=== PATIENT | male | born 1960 | race Caucasian/White ===

== ENCOUNTER 2024-05-13 17:23 | Emergency (ER) | payer MEDICAID, MEDICARE ==
[2024-05-13 17:43] VITALS: TEMP 97.1
[2024-05-13 19:33] VITALS: BP 128/74; O2SAT 94
[2024-05-14] MEDS ORDERED: JANU25TA PO (08:50)
[2024-05-14] MEDS ORDERED: METF-817 PO (08:50)
[2024-05-14] MEDS ORDERED: CEPH250T PO (08:50)
[2024-05-14] MEDS ORDERED: ASPI81CH33 PO (08:50)
[2024-05-14] MEDS ORDERED: JARD1TAB3 PO (08:50)
[2024-05-14] MEDS ORDERED: ATOR40TA75 PO (08:50)
[2024-05-14] MEDS ORDERED: LISI20TA33 PO (08:50)
== END 2024-05-13 20:07 | disposition home or self-care (01) ==
LOC: M ED 17:23 → EDBD 17:23 → M ED 20:07
DX: Z60.9 Problem related to social environment, unspecified (principal)

== ENCOUNTER 2024-05-14 07:15 | Emergency (ER) | payer MEDICARE ==
[2024-05-14] MEDS ORDERED: ATOR40TA75 PO (08:50)
[2024-05-14] MEDS ORDERED: JARD1TAB3 PO (08:50)
[2024-05-14] MEDS ORDERED: ASPI81CH33 PO (08:50)
[2024-05-14] MEDS ORDERED: LISI20TA33 PO (08:50)
[2024-05-14] MEDS ORDERED: JANU25TA PO (08:50)
[2024-05-14] MEDS ORDERED: METF-817 PO (08:50)
[2024-05-14] MEDS ORDERED: CEPH250T PO (08:50)
[2024-05-14 08:58] LABS: HEMATOCRIT 45.3 % (42.0-52.0); HEMOGLOBIN 14.8 g/dl (13.5-17.5); MEAN CORPUSCULAR HEMOGLOBIN 31.4 pg (27.0-33.0); MEAN CORPUSCULAR HGB CONC 32.7 g/dl (32.0-36.5); MEAN CORPUSCULAR VOLUME 96.2 fl (80.0-96.0); PLATELET COUNT, AUTOMATED 375 10^3/uL (150-450); RED BLOOD COUNT 4.71 10^6/uL (4.30-6.10); WHITE BLOOD COUNT 13.4 10^3/uL (4.0-10.0)
[2024-05-14 09:24] LABS: ETHYL ALCOHOL (ETHANOL) < 0.003 % (0.000-0.010)
[2024-05-14 09:26] LABS: ALBUMIN 3.3 G/DL (3.2-5.2); ALKALINE PHOSPHATASE 93 U/L (46-116); ALT/SGPT 24 U/L (7.0-40); AST/SGOT 16 U/L (<34); BILIRUBIN,DIRECT 0.2 MG/DL (<0.4); BILIRUBIN,TOTAL 0.6 MG/DL (0.3-1.2); BLOOD UREA NITROGEN 23 MG/DL (9-23); CALCIUM LEVEL 9.5 MG/DL (8.3-10.6); CARBON DIOXIDE LEVEL 26 MMOL/L (20-31); CHLORIDE LEVEL 106 MMOL/L (98-107); CREATININE FOR GFR 1.22 MG/DL (0.70-1.30); GLOMERULAR FILTRATION RATE > 60.0 (>49); GLUCOSE, FASTING 144 MG/DL (74-106); POTASSIUM SERUM 4.8 MMOL/L (3.5-5.1); SALICYLATE LEVEL < 3.0 MG/DL (<30); SODIUM LEVEL 137 MMOL/L (136-145); TOTAL PROTEIN 6.3 G/DL (5.7-8.2)
[2024-05-14 09:28] LABS: THYROID STIMULATING HORMONE 0.849 uIU/ML (0.55-4.78)
[2024-05-14 09:35] LABS: AMPHETAMINES LEVEL URINE NEGATIVE (NEGATIVE); BARBITURATES URINE NEGATIVE (NEGATIVE); BENZODIAZEPINES URINE NEGATIVE (NEGATIVE); CANNABINOIDS URINE NEGATIVE (NEGATIVE); COCAINE METABOLITE URINE NEGATIVE (NEGATIVE); METHADONE URINE NEGATIVE (NEGATIVE); OPIATES URINE NEGATIVE (NEGATIVE); PHENCYCLIDINE URINE NEGATIVE (NEGATIVE)
[2024-05-14 11:47] VITALS: BP 142/89; TEMP 97.8; O2SAT 99
== END 2024-05-14 12:03 | disposition home or self-care (01) ==
LOC: M ED 07:15
DX: F43.0 Acute stress reaction (principal); E66.9 Obesity, unspecified; E11.9 Type 2 diabetes mellitus without complications

== ENCOUNTER 2024-05-16 08:42 | Inpatient (IN) | payer MEDICARE ==
[~2024-05-16] VITALS: Ht 185.4 cm; Wt 159.0 kg
[~2024-05-16 08:42] MED LIST: ASPI81CH33 PO; ATOR40TA75 PO; CEPH250T PO; JANU25TA PO; JARD1TAB3 PO; LISI20TA33 PO; METF-817 PO
[2024-05-16 09:40] LABS: HEMATOCRIT 43.3 % (42.0-52.0); HEMOGLOBIN 14.3 g/dl (13.5-17.5); MEAN CORPUSCULAR HEMOGLOBIN 31.4 pg (27.0-33.0); MEAN CORPUSCULAR VOLUME 95.2 fl (80.0-96.0); PLATELET COUNT, AUTOMATED 351 10^3/uL (150-450); RED BLOOD COUNT 4.55 10^6/uL (4.30-6.10); WHITE BLOOD COUNT 10.5 10^3/uL (4.0-10.0)
[2024-05-16 10:02] LABS: ETHYL ALCOHOL (ETHANOL) < 0.003 % (0.000-0.010)
[2024-05-16 10:03] LABS: SALICYLATE LEVEL < 3.0 MG/DL (<30)
[2024-05-16 10:06] LABS: ALKALINE PHOSPHATASE 92 U/L (46-116); ALT/SGPT 19 U/L (7.0-40); AST/SGOT 12 U/L (<34); BILIRUBIN,DIRECT 0.1 MG/DL (<0.4); BILIRUBIN,TOTAL 0.4 MG/DL (0.3-1.2); BLOOD UREA NITROGEN 33 MG/DL (9-23); CALCIUM LEVEL 8.8 MG/DL (8.3-10.6); CARBON DIOXIDE LEVEL 24 MMOL/L (20-31); CHLORIDE LEVEL 108 MMOL/L (98-107); CREATININE FOR GFR 1.25 MG/DL (0.70-1.30); GLOMERULAR FILTRATION RATE > 60.0 (>49); GLUCOSE, FASTING 250 MG/DL (74-106); POTASSIUM SERUM 4.4 MMOL/L (3.5-5.1); SODIUM LEVEL 137 MMOL/L (136-145); THYROID STIMULATING HORMONE 0.546 uIU/ML (0.55-4.78); TOTAL PROTEIN 5.8 G/DL (5.7-8.2)
[2024-05-16] MEDS ORDERED: METF-723 PO (11:50)
[2024-05-16] MEDS ORDERED: CLOP75TA99 PO (11:50)
[2024-05-16] MEDS ORDERED: QUET100T2 PO (11:50)
[2024-05-16] MEDS ORDERED: GABA-1171 PO (11:50)
[2024-05-16] MEDS ORDERED: NIFE-3 PO (11:50)
[2024-05-16] MEDS ORDERED: CARV3.12 PO (11:50)
[2024-05-16] MEDS ORDERED: DIVA250T67 PO (11:50)
[2024-05-16] MEDS ORDERED: LANTINJ4 SC (11:52)
[2024-05-16] MEDS ORDERED: HUMA100I5 SC (11:52)
[2024-05-16] MEDS ORDERED: HOME MED LIST COMPLETE! XX SCH (11:55)
[2024-05-16 12:09] LABS: BARBITURATES URINE NEGATIVE (NEGATIVE); COCAINE METABOLITE URINE NEGATIVE (NEGATIVE)
[2024-05-16 12:10] LABS: AMPHETAMINES LEVEL URINE NEGATIVE (NEGATIVE); BENZODIAZEPINES URINE NEGATIVE (NEGATIVE); METHADONE URINE NEGATIVE (NEGATIVE); OPIATES URINE NEGATIVE (NEGATIVE); PHENCYCLIDINE URINE NEGATIVE (NEGATIVE)
[2024-05-16 12:20] LABS: CANNABINOIDS URINE POSITIVE (NEGATIVE)
[2024-05-16] MEDS ORDERED: INSULIN LISPRO (NovoLOG) PER UNIT SC SCH (12:40)
[2024-05-16] MEDS: CLOPIDOGREL 75 MG TAB PO SCH (13:21)
[2024-05-16] MEDS: INSULIN LISPRO (NovoLOG) PER UNIT SC SCH ×3 (13:21→20:40)
[2024-05-16] MEDS: GABAPENTIN 100 MG CAP PO SCH (16:00)
[2024-05-16] MEDS: DOCUSATE SODIUM 100MG CAPSULE PO PRN (19:55)
[2024-05-16] MEDS: DIVALPROEX 250MG TAB PO SCH (20:51)
[2024-05-16] MEDS: QUEtiapine FUMARATE 100 MG TAB PO SCH (20:51)
[2024-05-16] MEDS: CARVedilol 3.125 MG TAB PO SCH (20:52)
[2024-05-16] MEDS: LEVEMIR (INSULIN DETEMIR) 1 UNITS/0.01ML SC SCH (20:53)
[2024-05-17] MEDS: NIFEdipine 30MG XL TAB PO SCH (09:25)
[2024-05-17] MEDS: ASPIRIN 325 MG TAB PO SCH (09:26)
[2024-05-17 12:47] LABS: APPEARANCE, URINE CLEAR (CLEAR); BACTERIA, URINE AUTO NEGATIVE (NEGATIVE); BILIRUBIN, URINE AUTO NEGATIVE (NEGATIVE); BLOOD, URINE BLOOD NEGATIVE (NEGATIVE); COLOR, URINE YELLOW (YELLOW); GLUCOSE, URINE (UA) AUTO NEGATIVE (NEGATIVE); KETONE, URINE AUTO NEGATIVE (NEGATIVE); LEUKOCYTE ESTERASE, URINE AUTO NEGATIVE (NEGATIVE); NITRITE, URINE AUTO NEGATIVE (NEGATIVE); PROTEIN, URINE AUTO NEGATIVE (NEGATIVE); RBC, URINE AUTO 1 /HPF (0-3); SPECIFIC GRAVITY URINE AUTO 1.011 (1.002-1.035); SQUAMOUS EPITHELIAL CELL UR AU 0 /HPF (0-6); UROBILINOGEN, URINE AUTO 0.2 mg/dL (0.0-2.0); WBC, URINE AUTO 1 /HPF (0-3)
[2024-05-18] MEDS ORDERED: diphenhydrAMINE 25MG CAP PO PRN (09:25)
[2024-05-18] MEDS ORDERED: MOM 30ML SUSPENSION UDC PO PRN (09:25)
[2024-05-18] MEDS ORDERED: MAALOX 30 ML SUSP *UDC PO PRN (09:25)
[2024-05-18] MEDS ORDERED: IBUPROFEN 400MG TAB PO PRN (09:25)
[2024-05-18 11:16] VITALS: BP 134/63; TEMP 97.4; O2SAT 97
[2024-05-18] MEDS: LEVEMIR (INSULIN DETEMIR) 1 UNITS/0.01ML SC SCH (21:00)
[2024-05-18] MEDS: GABAPENTIN 100 MG CAP PO SCH (21:00)
[2024-05-18 21:22] VITALS: BP 141/80
[2024-05-18] MEDS: DIVALPROEX 250MG TAB PO SCH (21:24)
[2024-05-18] MEDS: QUEtiapine FUMARATE 100 MG TAB PO SCH (21:24)
[2024-05-18] MEDS: CARVedilol 3.125 MG TAB PO SCH (21:24)
[2024-05-19] MEDS: metFORMIN XR 500MG TAB *GLUCOPHAGE XR PO SCH (08:20)
[2024-05-19] MEDS: SITagliptin 50 MG TAB (JANUVIA) PO SCH (08:20)
[2024-05-19] MEDS: CLOPIDOGREL 75 MG TAB PO SCH (08:20)
[2024-05-19] MEDS: ASPIRIN 81MG CHEW TABLET PO SCH (08:20)
[2024-05-19] MEDS: NIFEdipine 30MG XL TAB PO SCH (08:21)
[2024-05-19] MEDS: ATORVASTATIN 20 MG TAB PO SCH (08:21)
[2024-05-19 17:46] VITALS: BP 130/80; TEMP 96.7; O2SAT 100
[2024-05-19] MEDS: RIVAROXABAN 10MG TAB (XARELTO) PO SCH (17:51)
[2024-05-20] MEDS ORDERED: ENOXAPARIN 40MG/0.4ML SYRINGE (J1650 PER 10MG) SC SCH (09:00)
[2024-05-20] MEDS: PILL CUTTER 1 EACH XX PRN (09:48)
[2024-05-20 16:45] VITALS: BP 122/60; TEMP 97.2; O2SAT 98
[2024-05-20] MEDS: NORCO, ANEXSIA 5/325MG TABLET (HYDROcodone/ACETAMINOPHEN) PO PRN (22:20)
[2024-05-21 15:48] VITALS: BP 123/58; TEMP 97.8; O2SAT 98
[2024-05-21] MEDS: NYSTATIN 100,000 UNITS/GM TOPICAL PWD 15GM TOP PRN (16:11)
[2024-05-22 16:43] VITALS: TEMP 98.8; O2SAT 97
[2024-05-23 15:35] VITALS: BP 148/80; TEMP 97.7; O2SAT 99
[2024-05-23] MEDS: ACETAMINOPHEN TAB 650MG DOSE (2X325MG) PO PRN (19:22)
[2024-05-24 21:05] VITALS: BP 159/84
[2024-05-24] MEDS: traZODone 50 MG TAB PO PRN (21:10)
[2024-05-24] MEDS: GABAPENTIN 100 MG CAP PO SCH (21:11)
[2024-05-25 08:55] VITALS: BP 140/78
[2024-05-25] MEDS ORDERED: XARE10TA PO (09:19)
[2024-05-25 12:10] LABS: HEMATOCRIT 44.2 % (42.0-52.0); HEMOGLOBIN 14.7 g/dl (13.5-17.5); MEAN CORPUSCULAR HEMOGLOBIN 31.2 pg (27.0-33.0); MEAN CORPUSCULAR HGB CONC 33.3 g/dl (32.0-36.5); MEAN CORPUSCULAR VOLUME 93.8 fl (80.0-96.0); PLATELET COUNT, AUTOMATED 329 10^3/uL (150-450); RED BLOOD COUNT 4.71 10^6/uL (4.30-6.10); WHITE BLOOD COUNT 7.8 10^3/uL (4.0-10.0)
== END 2024-05-25 13:37 | disposition home or self-care (01) | DRG 881 ==
LOC: EDBD 08:42 → M ED 08:42 → M ED INP 05-18 09:22 → M PSY 05-18 10:14
PROVIDERS: ADMIT Psychiatry & Neurology Child & Adolescent Psychiatry; ATTEND Psychiatry & Neurology Child & Adolescent Psychiatry
DX: F34.1 Dysthymic disorder (principal); R45.851 Suicidal ideations; Z59.00 Homelessness unspecified; F60.9 Personality disorder, unspecified; E11.42 Type 2 diabetes mellitus with diabetic polyneuropathy; E11.51 Type 2 diabetes mellitus with diabetic peripheral angiopathy without gangrene; I10 Essential (primary) hypertension; I73.9 Peripheral vascular disease, unspecified; E78.00 Pure hypercholesterolemia, unspecified; Z89.512 Acquired absence of left leg below knee; Z99.3 Dependence on wheelchair; Z79.84 Long term (current) use of oral hypoglycemic drugs; Z79.82 Long term (current) use of aspirin; Z79.4 Long term (current) use of insulin; Z79.899 Other long term (current) drug therapy

== ENCOUNTER 2024-05-26 16:18 | Emergency (ER) | payer MEDICARE ==
[~2024-05-26 16:18] MED LIST changes: +CARV3.12 PO; +CLOP75TA99 PO; +DIVA250T67 PO; +GABA-1171 PO; +HUMA100I5 SC; +LANTINJ4 SC; +METF-723 PO; +NIFE-3 PO; +QUET100T2 PO; +XARE10TA PO
[2024-05-26] MEDS ORDERED: HOME MED LIST COMPLETE! XX SCH (17:40)
[2024-05-26 17:55] LABS: HEMATOCRIT 43.6 % (42.0-52.0); HEMOGLOBIN 14.3 g/dl (13.5-17.5); MEAN CORPUSCULAR HGB CONC 32.8 g/dl (32.0-36.5); MEAN CORPUSCULAR VOLUME 94.4 fl (80.0-96.0); PLATELET COUNT, AUTOMATED 307 10^3/uL (150-450); RED BLOOD COUNT 4.62 10^6/uL (4.30-6.10); WHITE BLOOD COUNT 10.3 10^3/uL (4.0-10.0)
[2024-05-26 18:17] LABS: ETHYL ALCOHOL (ETHANOL) < 0.003 % (0.000-0.010)
[2024-05-26 18:19] LABS: ALBUMIN 3.3 G/DL (3.2-5.2); ALKALINE PHOSPHATASE 86 U/L (46-116); ALT/SGPT 22 U/L (7.0-40); AST/SGOT 15 U/L (<34); BILIRUBIN,DIRECT 0.1 MG/DL (<0.4); BILIRUBIN,TOTAL 0.3 MG/DL (0.3-1.2); BLOOD UREA NITROGEN 41 MG/DL (9-23); CALCIUM LEVEL 9.3 MG/DL (8.3-10.6); CARBON DIOXIDE LEVEL 24 MMOL/L (20-31); CHLORIDE LEVEL 110 MMOL/L (98-107); CREATININE FOR GFR 1.46 MG/DL (0.70-1.30); GLOMERULAR FILTRATION RATE 51.7 (>49); GLUCOSE, FASTING 156 MG/DL (74-106); POTASSIUM SERUM 4.3 MMOL/L (3.5-5.1); SALICYLATE LEVEL < 3.0 MG/DL (<30); SODIUM LEVEL 140 MMOL/L (136-145); TOTAL PROTEIN 6.2 G/DL (5.7-8.2)
[2024-05-26] MEDS ORDERED: MOM 30ML SUSPENSION UDC PO PRN (19:40)
[2024-05-26] MEDS ORDERED: ACETAMINOPHEN TAB 650MG DOSE (2X325MG) PO PRN (19:40)
[2024-05-26] MEDS ORDERED: GLUCAGON INJ 1MG VIAL SC PRN (19:45)
[2024-05-26] MEDS ORDERED: DEXTROSE 50% 50ML SYRINGE IV PRN (19:45)
[2024-05-26] MEDS ORDERED: GLUCOSE 4 GM CHEW PO PRN (19:45)
[2024-05-26] MEDS: RIVAROXABAN 10MG TAB (XARELTO) PO ONE (20:19)
[2024-05-26] MEDS: DOCUSATE SODIUM 100MG CAPSULE PO SCH (21:00)
[2024-05-26] MEDS: INSULIN LISPRO (NovoLOG) PER UNIT SC SCH (23:00)
[2024-05-27] MEDS: INSULIN LISPRO (NovoLOG) PER UNIT SC SCH (07:30)
[2024-05-27] MEDS ORDERED: PILL CUTTER 1 EACH XX ONE (07:40)
[2024-05-27] MEDS ORDERED: ENTER DRUG NAME HERE (PATIENT'S OWN MED) PO SCH (09:00)
[2024-05-27] MEDS: metFORMIN XR 500MG TAB *GLUCOPHAGE XR PO SCH (10:24)
[2024-05-27] MEDS: SITagliptin 50 MG TAB (JANUVIA) PO SCH (10:24)
[2024-05-27] MEDS: ATORVASTATIN 20 MG TAB PO SCH (10:35)
[2024-05-27] MEDS: ASPIRIN 81MG ENTERIC TABLET PO SCH (10:37)
[2024-05-27 10:53] VITALS: BP 140/70; TEMP 98; O2SAT 99
[2024-05-27] MEDS ORDERED: RIVAROXABAN 10MG TAB (XARELTO) PO SCH (18:00)
== END 2024-05-27 12:45 | disposition home or self-care (01) ==
LOC: M ED 16:18 → EDBD 16:18 → M ED 05-27 12:45
DX: I10 Essential (primary) hypertension (principal); E11.9 Type 2 diabetes mellitus without complications; F43.0 Acute stress reaction; Z79.82 Long term (current) use of aspirin; Z79.84 Long term (current) use of oral hypoglycemic drugs; Z79.899 Other long term (current) drug therapy

== ENCOUNTER 2024-05-27 19:24 | Emergency (ER) | payer MEDICARE ==
[~2024-05-27] VITALS: Ht 190.5 cm; Wt 113.6 kg
[2024-05-27] MEDS ORDERED: HOME MED LIST COMPLETE! XX SCH (19:50)
[2024-05-27 20:18] LABS: HEMATOCRIT 43.3 % (42.0-52.0); HEMOGLOBIN 14.3 g/dl (13.5-17.5); MEAN CORPUSCULAR HEMOGLOBIN 31.4 pg (27.0-33.0); MEAN CORPUSCULAR VOLUME 95.2 fl (80.0-96.0); PLATELET COUNT, AUTOMATED 289 10^3/uL (150-450); RED BLOOD COUNT 4.55 10^6/uL (4.30-6.10); WHITE BLOOD COUNT 9.4 10^3/uL (4.0-10.0)
[2024-05-27 20:50] LABS: ETHYL ALCOHOL (ETHANOL) 0.005 % (0.000-0.010)
[2024-05-27 20:52] LABS: SALICYLATE LEVEL < 3.0 MG/DL (<30)
[2024-05-27 20:54] LABS: THYROID STIMULATING HORMONE 1.104 uIU/ML (0.55-4.78)
[2024-05-27 20:55] LABS: ALBUMIN 3.2 G/DL (3.2-5.2); ALKALINE PHOSPHATASE 85 U/L (46-116); ALT/SGPT 22 U/L (7.0-40); AST/SGOT 16 U/L (<34); BILIRUBIN,DIRECT 0.2 MG/DL (<0.4); BILIRUBIN,TOTAL 0.6 MG/DL (0.3-1.2); BLOOD UREA NITROGEN 35 MG/DL (9-23); CALCIUM LEVEL 9.5 MG/DL (8.3-10.6); CARBON DIOXIDE LEVEL 22 MMOL/L (20-31); CHLORIDE LEVEL 111 MMOL/L (98-107); CREATININE FOR GFR 1.35 MG/DL (0.70-1.30); GLOMERULAR FILTRATION RATE 56.6 (>49); GLUCOSE, FASTING 211 MG/DL (74-106); POTASSIUM SERUM 4.2 MMOL/L (3.5-5.1); SODIUM LEVEL 140 MMOL/L (136-145); TOTAL PROTEIN 6.2 G/DL (5.7-8.2)
[2024-05-28 00:29] LABS: AMPHETAMINES LEVEL URINE NEGATIVE (NEGATIVE)
[2024-05-28 00:30] LABS: BARBITURATES URINE NEGATIVE (NEGATIVE); BENZODIAZEPINES URINE NEGATIVE (NEGATIVE); CANNABINOIDS URINE NEGATIVE (NEGATIVE); COCAINE METABOLITE URINE NEGATIVE (NEGATIVE); METHADONE URINE NEGATIVE (NEGATIVE); OPIATES URINE NEGATIVE (NEGATIVE); PHENCYCLIDINE URINE NEGATIVE (NEGATIVE)
[2024-05-28 03:14] VITALS: BP 158/75; TEMP 97.2; O2SAT 97
== END 2024-05-28 03:44 | disposition home or self-care (01) ==
LOC: M ED 19:24
DX: Z59.00 Homelessness unspecified (principal); Z76.5 Malingerer [conscious simulation]; F32.A Depression, unspecified; E11.51 Type 2 diabetes mellitus with diabetic peripheral angiopathy without gangrene; I10 Essential (primary) hypertension; F43.0 Acute stress reaction; Z89.449 Acquired absence of unspecified ankle; Z79.82 Long term (current) use of aspirin; Z79.84 Long term (current) use of oral hypoglycemic drugs; Z79.01 Long term (current) use of anticoagulants; Z79.899 Other long term (current) drug therapy

== ENCOUNTER 2024-06-08 03:33 | Emergency (ER) | payer MEDICARE, MEDICAID ==
[~2024-06-08] VITALS: Ht 188 cm; Wt 103.2 kg
[2024-06-08 09:15] VITALS: BP 135/78; TEMP 97.2; O2SAT 100
[2024-06-08] MEDS ORDERED: LISI20TA33 PO (09:29)
[2024-06-08] MEDS ORDERED: METF-723 PO (09:29)
[2024-06-08] MEDS ORDERED: XARE10TA PO (09:29)
[2024-06-08] MEDS ORDERED: ASPI81CH33 PO (09:29)
[2024-06-08] MEDS ORDERED: JANU25TA PO (09:29)
[2024-06-08] MEDS ORDERED: ATOR40TA75 PO (09:29)
[2024-06-08] MEDS ORDERED: JARD1TAB3 PO (09:29)
== END 2024-06-08 09:31 | disposition home or self-care (01) ==
LOC: M ED 03:33
DX: Z60.9 Problem related to social environment, unspecified (principal); F17.200 Nicotine dependence, unspecified, uncomplicated

== ENCOUNTER 2024-06-08 19:26 | Emergency (ER) | payer MEDICARE, MEDICAID ==
[~2024-06-08] VITALS: Ht 185.4 cm; Wt 122.7 kg
[2024-06-08 21:13] VITALS: BP 123/76; TEMP 97.6; O2SAT 95
== END 2024-06-09 05:50 | disposition home or self-care (01) ==
LOC: M ED 19:26
DX: Z59.00 Homelessness unspecified (principal); I10 Essential (primary) hypertension

== ENCOUNTER → 2024-06-09 | Emergency (ER) | payer MEDICARE, MEDICAID ==
[~2024-06-09] VITALS: Ht 188 cm; Wt 103.2 kg
[~2024-06-09] MED LIST changes: +AMLO1TAB24 PO; +ASPI81CH8 PO; +NYST-13 TOP
[2024-06-09 20:05] VITALS: BP 104/57; TEMP 97; O2SAT 96
== END | disposition left against medical advice (07) ==
LOC: M ED 19:56
DX: Z53.21 Procedure and treatment not carried out due to patient leaving prior to being seen by health care provider (principal)

== ENCOUNTER 2024-06-10 18:47 | Emergency (ER) | payer MEDICARE, MEDICAID ==
[~2024-06-10] VITALS: Ht 185.4 cm; Wt 122.4 kg
[~2024-06-10 18:47] MED LIST changes: -AMLO1TAB24 PO; -ASPI81CH8 PO; -NYST-13 TOP
[2024-06-11 05:51] VITALS: BP 142/70; TEMP 96.9; O2SAT 95
[2024-06-11] MEDS ORDERED: HOME MED LIST COMPLETE! XX SCH (07:45)
== END 2024-06-11 12:43 | disposition home or self-care (01) ==
LOC: EDBD 18:47 → M ED 18:47
DX: F32.A Depression, unspecified (principal); E78.5 Hyperlipidemia, unspecified; E11.9 Type 2 diabetes mellitus without complications; I10 Essential (primary) hypertension

== ENCOUNTER 2024-06-11 16:18 | Observation (INO) | payer MEDICARE, MEDICAID ==
[~2024-06-11] VITALS: Ht 185.4 cm; Wt 116.1 kg
[2024-06-11] MEDS ORDERED: HOME MED LIST COMPLETE! XX SCH (16:55)
[2024-06-11 17:25] LABS: HEMATOCRIT 44.5 % (42.0-52.0); HEMOGLOBIN 14.8 g/dl (13.5-17.5); MEAN CORPUSCULAR HEMOGLOBIN 31.8 pg (27.0-33.0); MEAN CORPUSCULAR HGB CONC 33.3 g/dl (32.0-36.5); MEAN CORPUSCULAR VOLUME 95.5 fl (80.0-96.0); PLATELET COUNT, AUTOMATED 323 10^3/uL (150-450); RED BLOOD COUNT 4.66 10^6/uL (4.30-6.10); WHITE BLOOD COUNT 8.7 10^3/uL (4.0-10.0)
[2024-06-11 17:45] LABS: ETHYL ALCOHOL (ETHANOL) < 0.003 % (0.000-0.010)
[2024-06-11 17:47] LABS: ALBUMIN 3.4 G/DL (3.2-5.2); ALKALINE PHOSPHATASE 98 U/L (46-116); ALT/SGPT 20 U/L (7.0-40); AST/SGOT 19 U/L (<34); BILIRUBIN,DIRECT 0.3 MG/DL (<0.4); BILIRUBIN,TOTAL 0.8 MG/DL (0.3-1.2); BLOOD UREA NITROGEN 40 MG/DL (9-23); CALCIUM LEVEL 9.5 MG/DL (8.3-10.6); CARBON DIOXIDE LEVEL 22 MMOL/L (20-31); CHLORIDE LEVEL 107 MMOL/L (98-107); CREATININE FOR GFR 1.63 MG/DL (0.70-1.30); GLOMERULAR FILTRATION RATE 45.6 (>49); GLUCOSE, FASTING 116 MG/DL (74-106); POTASSIUM SERUM 4.7 MMOL/L (3.5-5.1); SALICYLATE LEVEL < 3.0 MG/DL (<30); SODIUM LEVEL 135 MMOL/L (136-145); TOTAL PROTEIN 6.6 G/DL (5.7-8.2)
[2024-06-11 17:49] LABS: THYROID STIMULATING HORMONE 0.608 uIU/ML (0.55-4.78)
[2024-06-11 18:43] LABS: AMPHETAMINES LEVEL URINE NEGATIVE (NEGATIVE); BARBITURATES URINE NEGATIVE (NEGATIVE); BENZODIAZEPINES URINE NEGATIVE (NEGATIVE); CANNABINOIDS URINE NEGATIVE (NEGATIVE); COCAINE METABOLITE URINE NEGATIVE (NEGATIVE); METHADONE URINE NEGATIVE (NEGATIVE); OPIATES URINE NEGATIVE (NEGATIVE); PHENCYCLIDINE URINE NEGATIVE (NEGATIVE)
[2024-06-11] MEDS: NS 1,000 ML IV ONE (19:17)
[2024-06-11 21:45] LABS: CALCIUM LEVEL 9.3 MG/DL (8.3-10.6); CREATININE FOR GFR 1.75 MG/DL (0.70-1.30); POTASSIUM SERUM 4.2 MMOL/L (3.5-5.1)
[2024-06-11] MEDS: NS 1,000 ML IV SCH (22:43)
[2024-06-11] MEDS ORDERED: MOM 30ML SUSPENSION UDC PO PRN (23:45)
[2024-06-11] MEDS ORDERED: ACETAMINOPHEN TAB 650MG DOSE (2X325MG) PO PRN (23:45)
[2024-06-12 02:20] VITALS: BP 156/79; TEMP 97.5; O2SAT 99
[2024-06-12 03:54] VITALS: BP 152/78; TEMP 97.5; O2SAT 98
[2024-06-12] MEDS ORDERED: NS 1,000 ML IV SCH (04:05)
[2024-06-12] MEDS: HEPARIN SOD (PORCINE) 5000UNITS/ML 1ML VIAL/SYRINGE SC SCH (06:00)
[2024-06-12] MEDS: NS 1,000 ML IV SCH ×2 (06:10→10:43)
[2024-06-12] MEDS ORDERED: DEXTROSE 50% 50ML SYRINGE IV PRN (07:10)
[2024-06-12] MEDS ORDERED: GLUCAGON INJ 1MG VIAL SC PRN (07:10)
[2024-06-12] MEDS ORDERED: GLUCOSE 4 GM CHEW PO PRN (07:10)
[2024-06-12 07:53] LABS: CREATININE FOR GFR 1.68 MG/DL (0.70-1.30); POTASSIUM SERUM 4.3 MMOL/L (3.5-5.1)
[2024-06-12] MEDS: DOCUSATE SODIUM 100MG CAPSULE PO SCH (08:02)
[2024-06-12] MEDS: ATORVASTATIN 20 MG TAB PO SCH (08:15)
[2024-06-12] MEDS: ASPIRIN 81MG CHEW TABLET PO SCH (08:15)
[2024-06-12] MEDS: INSULIN LISPRO (NovoLOG) PER UNIT SC SCH ×2 (08:16→20:44)
[2024-06-12] MEDS ORDERED: ASPIRIN 81MG CHEW TABLET FT SCH (09:00)
[2024-06-12 12:08] VITALS: BP 128/85
[2024-06-12] MEDS: amLODIPine 5 MG TAB PO ONE (12:08)
[2024-06-12 12:09] VITALS: BP 128/85; TEMP 97.9; O2SAT 97
[2024-06-12] MEDS: NYSTATIN 100,000 UNITS/GM TOPICAL PWD 15GM TOP PRN (13:53)
[2024-06-12] MEDS: LOPERAMIDE 2 MG CAPLET PO PRN (13:53)
[2024-06-12 19:52] VITALS: BP 129/76; TEMP 97.7; O2SAT 96
[2024-06-13 04:08] VITALS: BP 135/75; TEMP 97.9; O2SAT 96
[2024-06-13 08:48] LABS: CREATININE FOR GFR 1.53 MG/DL (0.70-1.30); POTASSIUM SERUM 4.5 MMOL/L (3.5-5.1)
[2024-06-13] MEDS: amLODIPine 5 MG TAB PO SCH (09:00)
[2024-06-13] MEDS ORDERED: AMLO1TAB24 PO (10:05)
[2024-06-13] MEDS ORDERED: ASPI81CH8 PO (10:05)
== END 2024-06-13 13:50 | disposition home or self-care (01) ==
LOC: M ED 16:18 → EDBD 16:18 → M ED INP 16:19 → M MS5PR 06-12 02:40
PROVIDERS: ADMIT Student in an Organized Health Care Education/Training Program; ATTEND Internal Medicine
DX: R45.851 Suicidal ideations (principal); N17.9 Acute kidney failure, unspecified; N18.30 Chronic kidney disease, stage 3 unspecified; R94.4 Abnormal results of kidney function studies; Z59.00 Homelessness unspecified; Z89.512 Acquired absence of left leg below knee; Z99.3 Dependence on wheelchair; E11.43 Type 2 diabetes mellitus with diabetic autonomic (poly)neuropathy; I12.9 Hypertensive chronic kidney disease with stage 1 through stage 4 chronic kidney disease, or unspecified chronic kidney disease; E11.22 Type 2 diabetes mellitus with diabetic chronic kidney disease; E78.5 Hyperlipidemia, unspecified; F39 Unspecified mood [affective] disorder; R19.7 Diarrhea, unspecified; L30.4 Erythema intertrigo; Z91.141 Patient's other noncompliance with medication regimen due to financial hardship; Z79.899 Other long term (current) drug therapy; Z79.82 Long term (current) use of aspirin; Z79.84 Long term (current) use of oral hypoglycemic drugs; Z79.01 Long term (current) use of anticoagulants
CPT/HCPCS: 36415; 80048; 80076; 80143; 80307; 81001; 82077; 84443; 85027; 87507; 96360; 96361; 99285; G0378; J1815

== ENCOUNTER 2024-06-14 00:34 | Emergency (ER) | payer MEDICARE, MEDICAID ==
[~2024-06-14 00:34] MED LIST changes: +AMLO1TAB24 PO; +ASPI81CH8 PO
[2024-06-14 06:29] VITALS: BP 135/90; TEMP 97.2; O2SAT 100
== END 2024-06-14 09:00 | disposition home or self-care (01) ==
LOC: M ED 00:34
DX: Z59.00 Homelessness unspecified (principal); F32.A Depression, unspecified

== ENCOUNTER 2024-06-17 04:13 | Emergency (ER) | payer MEDICARE, MEDICAID ==
[~2024-06-17] VITALS: Ht 188 cm; Wt 103.2 kg
[2024-06-17 08:02] VITALS: BP 147/91; TEMP 96.7; O2SAT 98
[2024-06-17] MEDS ORDERED: NYST-13 TOP (08:07)
[2024-06-17] MEDS: NYSTATIN CREAM 15GM EXT SCH (08:08)
== END 2024-06-17 08:31 | disposition left against medical advice (07) ==
LOC: M ED 04:13
DX: R21 Rash and other nonspecific skin eruption (principal); Z53.9 Procedure and treatment not carried out, unspecified reason; E11.9 Type 2 diabetes mellitus without complications; I10 Essential (primary) hypertension; Z79.82 Long term (current) use of aspirin; Z79.899 Other long term (current) drug therapy

== ENCOUNTER 2024-06-23 04:49 | Emergency (ER) | payer MEDICARE, MEDICAID ==
[~2024-06-23] VITALS: Ht 188 cm; Wt 122.7 kg
[~2024-06-23 04:49] MED LIST changes: +NYST-13 TOP
[2024-06-23] MEDS ORDERED: NYST1POW9 TOP (04:56)
[2024-06-23] MEDS ORDERED: FLUC150T9 PO (07:04)
[2024-06-23 07:09] VITALS: BP 135/69; TEMP 96.6; O2SAT 97
== END 2024-06-23 08:33 | disposition home or self-care (01) ==
LOC: M ED 04:49
DX: B35.9 Dermatophytosis, unspecified (principal)

== ENCOUNTER 2024-07-02 12:22 | Emergency (ER) | payer MEDICARE, MEDICAID ==
[~2024-07-02] VITALS: Ht 188 cm; Wt 122.7 kg
[~2024-07-02 12:22] MED LIST changes: +FLUC150T9 PO; +NYST1POW9 TOP
[2024-07-02 12:30] VITALS: BP 118/58; TEMP 97.8; O2SAT 93
[2024-07-02] MEDS ORDERED: CEPH500C PO (13:31)
== END 2024-07-02 13:55 | disposition home or self-care (01) ==
LOC: M ED 12:22
DX: L03.115 Cellulitis of right lower limb (principal); E11.9 Type 2 diabetes mellitus without complications; Z79.82 Long term (current) use of aspirin; Z79.2 Long term (current) use of antibiotics; Z79.899 Other long term (current) drug therapy

== ENCOUNTER 2024-07-04 19:28 | Emergency (ER) | payer MEDICARE, MEDICAID ==
[~2024-07-04] VITALS: Ht 175.3 cm; Wt 81.8 kg
[~2024-07-04 19:28] MED LIST changes: +CEPH500C PO
[2024-07-05] MEDS ORDERED: NYST1POW9 TOP (09:03)
[2024-07-05] MEDS ORDERED: FLUC150T9 PO (09:03)
[2024-07-05 09:15] VITALS: BP 145/75; TEMP 96.5; O2SAT 100
== END 2024-07-05 09:20 | disposition home or self-care (01) ==
LOC: EDBD 19:28 → EDUNIT# 19:28 → M ED 19:28
DX: Z76.0 Encounter for issue of repeat prescription (principal); Z79.1 Long term (current) use of non-steroidal anti-inflammatories (NSAID); Z79.2 Long term (current) use of antibiotics; Z79.899 Other long term (current) drug therapy

== ENCOUNTER 2024-08-22 22:00 | Emergency (ER) | payer MEDICAID, MEDICARE ==
[~2024-08-22] VITALS: Ht 188 cm; Wt 57.7 kg
[~2024-08-22 22:00] MED LIST changes: +METF-1156 PO; -METF-817 PO; +NYST1POW3 TOP; -NYST1POW9 TOP
[2024-08-22 22:11] VITALS: BP 147/70; TEMP 97; O2SAT 96
[2024-08-24] MEDS ORDERED: AMLO1TAB24 PO (23:20)
== END 2024-08-23 01:24 | disposition home or self-care (01) ==
LOC: M ED 22:00
DX: L30.4 Erythema intertrigo (principal); Z59.00 Homelessness unspecified; Z89.612 Acquired absence of left leg above knee

== ENCOUNTER 2024-08-24 15:45 | Observation (INO) | payer MEDICARE ==
[~2024-08-24] VITALS: Ht 188 cm; Wt 113.5 kg
[~2024-08-24 15:45] MED LIST changes: +FLUCONAZOLE 50MG TABLET PO SCH
[2024-08-24 20:41] LABS: VENOUS BASE EXCESS 0.4 (-2.0-2.0); VENOUS HCO3 25.4 MMOL/L (23.0-27.0); VENOUS O2 SATURATION 87.2 % (60.0-80.0); VENOUS PARTIAL PRESSURE CO2 41.9 mmHg (38.0-50.0); VENOUS PARTIAL PRESSURE O2 49.3 mmHg (30.0-50.0); VENOUS STANDARD HCO3 24.6 MMOL/L; VENOUS TOTAL CO2 26.7 MMOL/L (24.0-28.0)
[2024-08-24 20:48] LABS: BASO # 0.1 10^3/uL (0.0-0.2); BASO % 0.7 % (0.0-1.0); EOS # 0.5 10^3/uL (0.0-0.5); EOS % 3.7 % (0.0-3.0); HEMATOCRIT 44.5 % (42.0-52.0); HEMOGLOBIN 14.8 g/dl (13.5-17.5); LYMPH # 2.3 10^3/uL (1.5-5.0); MEAN CORPUSCULAR HEMOGLOBIN 31.6 pg (27.0-33.0); MEAN CORPUSCULAR HGB CONC 33.3 g/dl (32.0-36.5); MEAN CORPUSCULAR VOLUME 94.9 fl (80.0-96.0); MONO # 0.7 10^3/uL (0.0-0.8); NEUTROPHILS % 73.3 % (36.0-66.0); PLATELET COUNT, AUTOMATED 380 10^3/uL (150-450); RED BLOOD COUNT 4.69 10^6/uL (4.30-6.10); WHITE BLOOD COUNT 13.6 10^3/uL (4.0-10.0)
[2024-08-24] MEDS: DOCUSATE SODIUM 100MG CAPSULE PO SCH (21:00)
[2024-08-24] MEDS: LIDOCAINE 2% 5ML JELLY UROJET TOP ONE (21:02)
[2024-08-24 21:11] LABS: ETHYL ALCOHOL (ETHANOL) < 0.003 % (0.000-0.010)
[2024-08-24 21:13] LABS: BLOOD UREA NITROGEN 32 MG/DL (9-23); CALCIUM LEVEL 9.8 MG/DL (8.3-10.6); CARBON DIOXIDE LEVEL 25 MMOL/L (20-31); CHLORIDE LEVEL 111 MMOL/L (98-107); CREATININE FOR GFR 1.24 MG/DL (0.70-1.30); GLOMERULAR FILTRATION RATE > 60.0 (>49); GLUCOSE, FASTING 131 MG/DL (74-106); POTASSIUM SERUM 4.4 MMOL/L (3.5-5.1); SODIUM LEVEL 145 MMOL/L (136-145)
[2024-08-24] MEDS: cefTRIAXone SOD 1 GM in DEXTROSE 5% (D5W) ADV/MINI-BAG 50 ML IV ONE (21:19)
[2024-08-24 21:47] LABS: AMPHETAMINES LEVEL URINE NEGATIVE (NEGATIVE)
[2024-08-24 21:48] LABS: BARBITURATES URINE NEGATIVE (NEGATIVE); BENZODIAZEPINES URINE NEGATIVE (NEGATIVE); COCAINE METABOLITE URINE NEGATIVE (NEGATIVE); METHADONE URINE NEGATIVE (NEGATIVE); OPIATES URINE NEGATIVE (NEGATIVE); PHENCYCLIDINE URINE NEGATIVE (NEGATIVE)
[2024-08-24 21:49] LABS: CANNABINOIDS URINE POSITIVE (NEGATIVE)
[2024-08-24] MEDS ORDERED: AMLO1TAB24 PO (23:20)
[2024-08-24] MEDS ORDERED: HOME MED LIST COMPLETE! XX SCH (23:25)
[2024-08-24] MEDS ORDERED: MAALOX 30 ML SUSP *UDC PO PRN (23:35)
[2024-08-24] MEDS ORDERED: GLUCAGON INJ 1MG VIAL SC PRN (23:35)
[2024-08-24] MEDS ORDERED: KETOROLAC 30 MG/ML 1ML VIAL IV PRN (23:35)
[2024-08-24] MEDS ORDERED: GLUCOSE 4 GM CHEW PO PRN (23:35)
[2024-08-24] MEDS ORDERED: DEXTROSE 50% 50ML SYRINGE IV PRN (23:35)
[2024-08-24] MEDS ORDERED: MOM 30ML SUSPENSION UDC PO PRN (23:35)
[2024-08-25] MEDS: NYSTATIN 100,000 UNITS/GM TOPICAL PWD 15GM TOP SCH (00:51)
[2024-08-25 01:09] LABS: ALBUMIN 2.9 G/DL (3.2-5.2); BILIRUBIN,DIRECT 0.2 MG/DL (<0.4); BILIRUBIN,TOTAL 0.7 MG/DL (0.3-1.2); MAGNESIUM LEVEL 1.8 MG/DL (1.8-2.4); TOTAL PROTEIN 5.8 G/DL (5.7-8.2)
[2024-08-25 01:16] LABS: PROCALCITONIN 0.06 ng/ml
[2024-08-25 01:24] LABS: INR 1.11; PARTIAL THROMBOPLASTIN TIME 28.8 SECONDS (24.8-34.2); PROTHROMBIN TIME 14.6 SECONDS (12.5-14.5)
[2024-08-25 01:37] LABS: HEMOGLOBIN A1c 7.1 % (4.0-6.0)
[2024-08-25 05:47] LABS: HEMATOCRIT 43.9 % (42.0-52.0); HEMOGLOBIN 14.2 g/dl (13.5-17.5); MEAN CORPUSCULAR HEMOGLOBIN 30.8 pg (27.0-33.0); MEAN CORPUSCULAR HGB CONC 32.3 g/dl (32.0-36.5); MEAN CORPUSCULAR VOLUME 95.2 fl (80.0-96.0); PLATELET COUNT, AUTOMATED 317 10^3/uL (150-450); RED BLOOD COUNT 4.61 10^6/uL (4.30-6.10); WHITE BLOOD COUNT 9.4 10^3/uL (4.0-10.0)
[2024-08-25 06:13] LABS: ALKALINE PHOSPHATASE 87 U/L (40-129); ALT/SGPT 17 U/L (7.0-40); AST/SGOT 16 U/L (<34); BILIRUBIN,TOTAL 0.9 MG/DL (0.3-1.2); BLOOD UREA NITROGEN 31 MG/DL (9-23); CALCIUM LEVEL 9.7 MG/DL (8.3-10.6); CARBON DIOXIDE LEVEL 26 MMOL/L (20-31); CHLORIDE LEVEL 110 MMOL/L (98-107); CREATININE FOR GFR 1.22 MG/DL (0.70-1.30); GLOMERULAR FILTRATION RATE > 60.0 (>49); GLUCOSE, FASTING 164 MG/DL (74-106); MAGNESIUM LEVEL 1.8 MG/DL (1.8-2.4); POTASSIUM SERUM 4.4 MMOL/L (3.5-5.1); SODIUM LEVEL 145 MMOL/L (136-145)
[2024-08-25 06:40] VITALS: BP 141/86; TEMP 97.3; O2SAT 97
[2024-08-25 06:45] VITALS: O2SAT 97
[2024-08-25] MEDS: INSULIN LISPRO (NovoLOG) PER UNIT SC SCH ×2 (07:30→21:00)
[2024-08-25] MEDS: ENOXAPARIN 40MG/0.4ML SYRINGE (J1650 PER 10MG) SC SCH (09:00)
[2024-08-25] MEDS: FLUCONAZOLE 50MG TABLET PO SCH (09:46)
[2024-08-25 12:00] VITALS: BP 135/56; TEMP 97.5; O2SAT 94
[2024-08-25 19:29] VITALS: BP 153/81; TEMP 97.5; O2SAT 97
[2024-08-25] MEDS: cefTRIAXone SOD 1 GM in DEXTROSE 5% (D5W) ADV/MINI-BAG 50 ML IV SCH (20:36)
[2024-08-25] MEDS: LEVEMIR (INSULIN DETEMIR) 1 UNITS/0.01ML SC SCH (21:00)
[2024-08-25] MEDS: LACTOBACILLUS ACIDOPHILUS CAP (BACID) PO SCH (22:30)
[2024-08-26 05:55] VITALS: BP 142/76; TEMP 98.1; O2SAT 100
[2024-08-26] MEDS: LOPERAMIDE 2 MG CAPLET PO PRN (09:09)
[2024-08-26] MEDS: OLANZapine ORAL DISINTEGRATING TAB 5MG PO PRN (09:11)
[2024-08-26 12:00] VITALS: BP 151/82; TEMP 97.5; O2SAT 97
[2024-08-26] MEDS ORDERED: DEXTROSE 50% 50ML SYRINGE IV PRN (12:20)
[2024-08-26] MEDS ORDERED: GLUCOSE 4 GM CHEW PO PRN (12:20)
[2024-08-26] MEDS ORDERED: GLUCAGON INJ 1MG VIAL SC PRN (12:20)
[2024-08-26] MEDS: NIX CREME RINSE 1% 60ML KIT TOP ONE (15:38)
[2024-08-26] MEDS: INSULIN LISPRO (NovoLOG) PER UNIT SC SCH (17:30)
[2024-08-26 20:20] VITALS: BP 173/82; TEMP 98.1; O2SAT 97
[2024-08-27 03:32] VITALS: BP 143/78; TEMP 98.2; O2SAT 94
[2024-08-27 11:30] VITALS: BP 147/74; TEMP 97.9; O2SAT 98
[2024-08-27 14:01] LABS: HEMATOCRIT 47.2 % (42.0-52.0); HEMOGLOBIN 15.6 g/dl (13.5-17.5); MEAN CORPUSCULAR HEMOGLOBIN 31.3 pg (27.0-33.0); MEAN CORPUSCULAR HGB CONC 33.1 g/dl (32.0-36.5); MEAN CORPUSCULAR VOLUME 94.8 fl (80.0-96.0); PLATELET COUNT, AUTOMATED 367 10^3/uL (150-450); RED BLOOD COUNT 4.98 10^6/uL (4.30-6.10); WHITE BLOOD COUNT 9.6 10^3/uL (4.0-10.0)
[2024-08-27 14:26] LABS: BLOOD UREA NITROGEN 28 MG/DL (9-23); CALCIUM LEVEL 9.9 MG/DL (8.3-10.6); CARBON DIOXIDE LEVEL 26 MMOL/L (20-31); CHLORIDE LEVEL 107 MMOL/L (98-107); CREATININE FOR GFR 1.28 MG/DL (0.70-1.30); GLOMERULAR FILTRATION RATE > 60.0 (>49); GLUCOSE, FASTING 103 MG/DL (74-106); POTASSIUM SERUM 4.3 MMOL/L (3.5-5.1); SODIUM LEVEL 140 MMOL/L (136-145)
[2024-08-28 04:32] VITALS: BP 149/76; TEMP 97.9; O2SAT 93
[2024-08-29 04:34] VITALS: BP 144/70; TEMP 98.1; O2SAT 93
[2024-08-30 08:07] LABS: HEMATOCRIT 46.2 % (42.0-52.0); HEMOGLOBIN 15.6 g/dl (13.5-17.5); MEAN CORPUSCULAR HEMOGLOBIN 31.5 pg (27.0-33.0); MEAN CORPUSCULAR HGB CONC 33.8 g/dl (32.0-36.5); MEAN CORPUSCULAR VOLUME 93.1 fl (80.0-96.0); PLATELET COUNT, AUTOMATED 345 10^3/uL (150-450); RED BLOOD COUNT 4.96 10^6/uL (4.30-6.10); WHITE BLOOD COUNT 10.3 10^3/uL (4.0-10.0)
[2024-08-30 20:29] VITALS: BP 146/71; TEMP 98.1; O2SAT 93
[2024-08-30] MEDS: ACETAMINOPHEN 325 MG TAB PO PRN (21:55)
[2024-08-31 05:25] VITALS: BP 150/72; TEMP 98.1; O2SAT 94
[2024-08-31 05:27] VITALS: BP 150/68; TEMP 98; O2SAT 94
[2024-08-31] MEDS ORDERED: ASPI81CH33 PO (07:26)
[2024-08-31] MEDS ORDERED: GLUC1TES2 XX (07:29)
[2024-08-31] MEDS ORDERED: BLOOKIT21 XX (07:29)
[2024-08-31] MEDS ORDERED: METF-839 PO (07:29)
[2024-08-31] MEDS ORDERED: LANC30MI XX (07:29)
[2024-08-31] MEDS ORDERED: LISI5TAB11 PO (07:29)
[2024-08-31] MEDS ORDERED: ALCOPAD25 TOP (07:29)
[2024-08-31] MEDS ORDERED: BLOO-175 XX (07:29)
== END 2024-08-31 10:53 | disposition home or self-care (01) ==
LOC: M ED 15:45 → EDBD 15:45 → M ED INP 15:46 → M MSPAV 08-25 06:48
PROVIDERS: ADMIT Student in an Organized Health Care Education/Training Program; ATTEND General Practice
DX: E11.65 Type 2 diabetes mellitus with hyperglycemia (principal); Z91.199 Patient's noncompliance with other medical treatment and regimen due to unspecified reason; R82.71 Bacteriuria; R65.11 Systemic inflammatory response syndrome (SIRS) of non-infectious origin with acute organ dysfunction; D72.829 Elevated white blood cell count, unspecified; B35.6 Tinea cruris; N10 Acute pyelonephritis; I73.9 Peripheral vascular disease, unspecified; Z89.512 Acquired absence of left leg below knee; Z99.3 Dependence on wheelchair; E11.40 Type 2 diabetes mellitus with diabetic neuropathy, unspecified; N18.30 Chronic kidney disease, stage 3 unspecified; N28.1 Cyst of kidney, acquired; R19.7 Diarrhea, unspecified; R60.0 Localized edema; R05.3 Chronic cough; I12.9 Hypertensive chronic kidney disease with stage 1 through stage 4 chronic kidney disease, or unspecified chronic kidney disease; E11.22 Type 2 diabetes mellitus with diabetic chronic kidney disease; E78.5 Hyperlipidemia, unspecified; F39 Unspecified mood [affective] disorder; Z59.00 Homelessness unspecified; Z79.899 Other long term (current) drug therapy
CPT/HCPCS: 36415; 51701; 73030; 74176; 76775; 80048; 80053; 80076; 80307; 81001; 82010; 82077; 82803; 83036; 83605; 83735; 84145; 85025; 85027; 85610; 85730; 87086; 87507; 93306; 96365; 97161; 99285; G0378; J0696; J1815

== ENCOUNTER 2024-08-31 20:30 | Emergency (ER) | payer MEDICARE ==
[~2024-08-31] VITALS: Ht 188 cm; Wt 103.1 kg
[~2024-08-31 20:30] MED LIST changes: +ALCOPAD25 TOP; +BLOO-175 XX; +BLOOKIT21 XX; -FLUCONAZOLE 50MG TABLET PO SCH; +GLUC1TES2 XX; +LANC30MI XX; +LISI5TAB11 PO; +METF-839 PO
[2024-09-01 18:17] VITALS: BP 144/76; TEMP 97.6; O2SAT 99
[2024-09-02] MEDS ORDERED: METF500T13 PO (02:31)
[2024-09-02] MEDS ORDERED: LISI5TAB11 PO (02:31)
[2024-09-02] MEDS ORDERED: HOME MED LIST COMPLETE! XX SCH (02:35)
== END 2024-09-02 10:21 | disposition home or self-care (01) ==
LOC: M ED 20:30
DX: Z20.7 Contact with and (suspected) exposure to pediculosis, acariasis and other infestations (principal); E11.9 Type 2 diabetes mellitus without complications